=== PATIENT | female | born 1955 | race Caucasian/White ===

== ENCOUNTER 2017-09-16 13:22 | Emergency (ER) | payer BC ==
--- NOTE | 2017-09-16 15:04 | ER ---
HISTORY OF PRESENT ILLNESS: The patient is a 61-year-old female who comes in today with a 2- day history of fever. She notes she had a fever to 102. She did take some ibuprofen at home, but she is only taking 200 mg every 6 hours. She also takes 81 mg enteric-coated aspirin. The patient notes she had some congestion the other day, sore throat, a little bit of a headache, decreased appetite, and some myalgias, but all of her symptoms have been relatively mild other than the fever, which was 102. Temperature at presentation in the ER is 99.6. The patient does not have dysuria. She does not have nausea, vomiting, diarrhea. She does not have a cough. She no longer has a sore throat. The sinuses are not draining any purulent material. She just basically feels little dragged out and has a fever. No abdominal pain. Really no pain anywhere other than some mild myalgias. ALLERGIES: NKDA. CURRENT MEDICATIONS: 1. Advil 200 mg every 6 hours as needed. 2. Enteric-coated aspirin 81 mg p.o. daily. 3. Fish oil 1000 mg per day. 4. Claritin 10 mg p.o. daily. 5. Metoprolol succinate 50 mg p.o. daily. 6. Levonorgestrel and ethinyl estradiol. 7. Oyster shell and calcium with vitamin D and along with extra vitamin D3. PHYSICAL EXAMINATION: GENERAL: She is alert, oriented, in no apparent distress. VITAL SIGNS: Temperature is 99.6, heart rate is 94, blood pressure is 136/82, O2 saturation is 95% on room air. HEENT: TMs are normal. Nares are clear. Throat is normal. NECK: Supple. No nodes. LUNGS: Clear. HEART: Regular sinus rhythm without murmur. ABDOMEN: Soft, nontender. Positive bowel sounds. No hepatosplenomegaly. : Not examined. EXTREMITIES: No clubbing, cyanosis, or edema. ASSESSMENT: Febrile illness, most likely viral. PLAN: Discussed with the patient. She can increase her ibuprofen to 600 to 800 mg every 8 hours, which will take care of the fever, increase her fluid intake and get some rest. If she develops worsening symptoms, I would have her return to clinic. At this point, her symptoms seem relatively mild. We did not obtain any lab work as it is not likely to change our approach. If her symptoms worsen, however, would have her return back to the ER, and we will obtain a CBC, comprehensive metabolic panel, etc. DIONICIO/PREMA /[id number]
== END 2017-09-16 13:45 | disposition home or self-care (01) ==
LOC: LB.ED 13:22
DX: R50.9 Fever, unspecified (principal); Z79.899 Other long term (current) drug therapy
CPT/HCPCS: 99283